=== PATIENT | male | born 1995 | race Caucasian/White ===

== ENCOUNTER 2020-05-15 00:21 | Emergency (ER) | payer MEDICAID ==
[~2020-05-15] VITALS: Ht 177.8 cm; Wt 80.0 kg
[2020-05-15] MEDS ORDERED: ondansetron/PF 4mg/2ml inj IV ONE (01:30)
[2020-05-15] MEDS ORDERED: normal saline 1000ML IV soln IVB ONE (01:30)
[2020-05-15] MEDS ORDERED: pantoprazole 40 MG vial IV ONE (01:30)
[2020-05-15 01:59] LABS: BASOPHILS # (AUTO) 0.1 X10'3 (0-0.2); EOSINOPHILS # (AUTO) 0.3 X10'3 (0-0.9); EOSINOPHILS % (AUTO) 4.8 % (0-6); HEMOGLOBIN 12.8 g/dl (14.0-17.9); LYMPHOCYTES # (AUTO) 2.3 X10'3 (1.1-4.8); LYMPHOCYTES % (AUTO) 36.3 % (21-51); MEAN CORPUSCULAR HEMOGLOBIN 30.4 PG (27.0-31.0); MEAN CORPUSCULAR HGB CONC 33.7 g/dL (33.0-36.5); MEAN CORPUSCULAR VOLUME 90.4 FL (78-98); MEAN PLATELET VOLUME 7.7 FL (7.4-10.4); MONOCYTES # (AUTO) 0.5 X10'3 (0-0.9); MONOCYTES % (AUTO) 8.5 % (2-12); NEUTROPHILS # (AUTO) 3.1 X10'3 (1.8-7.7); NEUTROPHILS % (AUTO) 49.4 % (42-75); PLATELET COUNT 358 X10'3 (140-440); RED CELL DISTRIBUTION WIDTH 14.6 % (11.5-14.5); WHITE BLOOD COUNT 6.4 X10'3 (4.5-11.0)
[2020-05-15 02:14] LABS: ALANINE AMINOTRANSFERASE 140 U/L (12-78); ALBUMIN 3.5 G/DL (3.4-5.0); ALKALINE PHOSPHATASE 78 IU/L (46-116); ANION GAP 5 (8-16); ASPARTATE AMINO TRANSFERASE 43 U/L (10-37); BILIRUBIN,TOTAL 0.4 MG/DL (0.1-1.0); BLOOD UREA NITROGEN 16 MG/DL (7-18); BUN/CREATININE RATIO 19.3 (5.4-32.0); CALCIUM 8.7 MG/DL (8.5-10.1); CHLORIDE 106 MMOL/L (99-107); CREATININE 0.83 MG/DL (0.60-1.10); GLUCOSE 94 MG/DL (70-104); LIPASE 108 U/L (73-393); POTASSIUM 3.7 MMOL/L (3.5-5.1); SODIUM 141 MMOL/L (135-145); TOTAL CARBON DIOXIDE 29.9 MMOL/L (24-32); TOTAL PROTEIN 6.9 G/DL (6.4-8.2); eGFR > 90 ML/MIN
[2020-05-15 02:27] VITALS: BP 111/70
[2020-05-15] MEDS ORDERED: iohexol 300mg/ml 100ml inj. ONE (03:45)
--- NOTE | 2020-05-15 04:23 | NUR ---
PATIENT PULLED OUT IV AND BEGAN GETTING DRESSED STATING THAT HE IS LEAVING. EXPLAINED TO PATIENT THAT HE IS WAITING FOR THE RESULTS OF CT SCAN. PATIENT DOES NOT WISH TO WAIT AND LEFT BEFORE SPEAKING WITH MD.
== END 2020-05-15 04:28 | disposition left against medical advice (07) ==
LOC: ER 00:22
DX: K50.90 Crohn's disease, unspecified, without complications (principal); R10.32 Left lower quadrant pain; R19.7 Diarrhea, unspecified; R11.10 Vomiting, unspecified; R10.13 Epigastric pain; F17.200 Nicotine dependence, unspecified, uncomplicated; F15.90 Other stimulant use, unspecified, uncomplicated; Z59.0 Homelessness; Z88.0 Allergy status to penicillin; Z88.5 Allergy status to narcotic agent
CPT/HCPCS: 36415; 74177; 80053; 83690; 85025; 96361; 96374; 96375; 99285; C9113; J2405; J7030; Q9967

== ENCOUNTER 2020-10-25 22:07 | Emergency (ER) | payer MEDICAID ==
[~2020-10-25] VITALS: Ht 177.8 cm; Wt 72.7 kg
[2020-10-25 22:10] VITALS: BP 145/66
== END 2020-10-25 22:47 | disposition left against medical advice (07) ==
LOC: ER 22:08
DX: L02.91 Cutaneous abscess, unspecified (principal); Z53.21 Procedure and treatment not carried out due to patient leaving prior to being seen by health care provider

== ENCOUNTER 2020-10-31 14:51 | Emergency (ER) | payer MEDICAID ==
[~2020-10-31] VITALS: Ht 177.8 cm; Wt 75.0 kg
[2020-10-31 14:55] VITALS: BP 125/66
[2020-10-31] MEDS ORDERED: CLIN150C8 PO (15:13)
[2020-10-31] MEDS ORDERED: ibuprofen tablet 400 MG TABLET PO ONE (16:00)
== END 2020-10-31 16:07 | disposition home or self-care (01) ==
LOC: ER 14:51
DX: L05.01 Pilonidal cyst with abscess (principal); F15.90 Other stimulant use, unspecified, uncomplicated; Z59.0 Homelessness; Z88.0 Allergy status to penicillin; Z88.5 Allergy status to narcotic agent; Z79.2 Long term (current) use of antibiotics
CPT/HCPCS: 99283